=== PATIENT | female | born 1990 | race Caucasian/White ===

== ENCOUNTER 2018-08-26 12:45 | Emergency (ER) | payer MEDICAID ==
[~2018-08-26] VITALS: Ht 160 cm; Wt 68.0 kg
[2018-08-26 12:51] VITALS: Ht 160 cm; Wt 68.0 kg
[2018-08-26] MEDS ORDERED: ACETAMINOPHEN 500 MG TAB PO STA (16:28)
--- NOTE | 2018-08-26 17:10 | ERD ---
ER Documentation Chief Complaint Chief Complaint HEADACHE/COUGH/BODYACHE X1WEEK; 17WEEKS PREG HPI 27 year-old [female] coming in today with Chief Complaint: Cold symptoms History of Present Illness: female coming in today with family member with complaint of cold symptoms; reports 17 weeks . Associated symptoms include headache, cough, green sputum, lower back pain. All associated symptoms present for 6 days. Patient denies seeking medical treatment for this current complaint. Denies use of medications at home for current signs and symptoms. Review of systems: All systems were reviewed and are negative except for what is indicated in the history of present illness. Past Medical History: [Negative for hypertension, diabetes or other medical problems]; unknown abdominal surgery in [facility] Social History: [Patient denies tobacco, alcohol, elicit drug use] Medications: [None] Allergies: [NKDA] Social Concerns: Denies ROS All systems reviewed and are negative except as per history of present illness. Medications Home Meds Active Scripts Guaifenesin (Guaifenesin) 1,200 Mg Tab.er.12h, 1200 MG PO Q12 PRN for chest c ongesion/mucus, #14 TAB Prov:MAEGAN PERALES NP 08/26/18 Azithromycin* (Zithromax*) 250 Mg Tablet, 250 MG PO .ZPACK DIRECTED for respiratory infection, #6 TAB TAKE 500 MG (2 TABS) THE FIRST DAY THEN 250 MG (1 TAB) DAYS 2-5 Prov:MAEGAN PERALES NP 08/26/18 Acetaminophen* (Tylenol*) 325 Mg Tablet, 2 TAB PO Q8 PRN for PAIN AND OR TRUONG VATED TEMP, #60 TAB Prov:MAEGAN PERALES NP 08/26/18 Cetirizine Hcl* (Zyrtec*) 10 Mg Capsule, 10 MG PO DAILY for cough/allergies/cold symptoms, #10 TAB.CHEW Prov:MAEGAN PERALES NP 08/26/18 Allergies Allergies: Coded Allergies: No Known Allergy (Unverified , 08/26/18) PMhx/Soc Medical and Surgical Hx: pt denies Medical Hx, pt denies Surgical Hx Hx Alcohol Use: No Hx Substance Use: No Hx Tobacco Use: No Smoking Status: Never smoker FmHx Family History: No diabetes, No coronary disease Physical Exam Vitals Vital Signs Date Temp Pulse Resp B/P (MAP) Pulse Ox O2 O2 Flow FiO2 Time Delivery Rate 08/26/18 98.0 76 20 122/56 99 12:51 (78) Physical Exam Const: No acute distress Head: Atraumatic Eyes: Normal Conjunctiva ENT: Normal External Ears, Nose and Mouth. Neck: Full range of motion. No meningismus. Resp: Clear to auscultation bilaterally Cardio: Regular rate and rhythm, no murmurs Abd: Soft, non tender, non distended. Normal bowel sounds Skin: No petechiae or rashes Back: No midline or flank tenderness Ext: No cyanosis, or edema Neur: Awake and alert Psych: Normal Mood and Affect Results 24 hrs Laboratory Tests Test 08/26/18 16:35 Urine Color YELLOW Urine Clarity CLEAR Urine pH 7.0 Urine Specific [place] 1.005 Urine Ketones 1+ mg/dL Urine Nitrite NEGATIVE mg/dL Urine Bilirubin NEGATIVE mg/dL Urine Urobilinogen NEGATIVE mg/dL Urine Leukocyte Esterase NEGATIVE David/ul Urine Microscopic RBC 1 /HPF Urine Microscopic WBC 1 /HPF Urine Squamous Epithelial Cells FEW /HPF Urine Hemoglobin 2+ mg/dL Urine Glucose NEGATIVE mg/dL Urine Total Protein NEGATIVE mg/dl Current Medications Medications Dose Sig/[place] Start Time Status Last (Trade) Ordered Route PRN Stop Time Admin Dose Reason Admin 1,000 mg ONCE STAT 08/26/18 DC 08/26/18 Acetaminophen PO 16:28 16:44 (Tylenol 08/26/18 16:29 Tab) Procedures/MDM Patient with complaint of symptoms ED course includes a thorough examination and history. ED course includes influenza and urinalysis testing. ED course includes acetaminophen for pain control. --------- Low suspicion for life-threatening respiratory emergency. Otherwise healthy patient presenting with constellation of symptoms likely representing uncomplicated URI as characterized by history, physical exam findings lab findings]. Negative influenza and urinalysis testing. heart tones within normal limits. No respiratory distress, otherwise relatively well appearing and nontoxic. Patient educated on diagnoses, prescriptions (cetirizine for cough and allergies, guaifenesin for congestion, azithromycin for infection, acetaminophen for pain), follow-up care, return precautions. Strict return precautions given for worsening condition; questions answered discharge. Disposition for discharge with followup in 2-3 days with PCP/clinic. MAEGAN PERALES NP Aug 26, 2018 17:10
[2018-08-26] MEDS ORDERED: CETI10CA PO (17:56)
[2018-08-26] MEDS ORDERED: ACET325T33 PO (17:56)
[2018-08-26] MEDS ORDERED: AZIT250T PO (17:57)
[2018-08-26] MEDS ORDERED: [UNRECOGNIZED DRUG - CODE] PO (18:00)
[2018-08-26 18:45] VITALS: BP 108/54; PULSE 68; RESP 16
== END 2018-08-26 18:45 | disposition home or self-care (01) ==
LOC: FTE 12:45
DX: O99.89 Other specified diseases and conditions complicating pregnancy, childbirth and the puerperium (principal); R51 Headache; Z3A.17 17 weeks gestation of pregnancy
CPT/HCPCS: 81001; 87400; Z7610; 99283